=== PATIENT | female | born 1985 | race Caucasian/White ===

== ENCOUNTER 2018-04-15 12:26 | Outpatient (CLI) | payer MEDICAID | END 2018-04-15 16:15 | disposition home or self-care (01) | LOC: OBT 12:26 → L-D 12:27 → OBT 16:15 | DX: O62.9 Abnormality of forces of labor, unspecified (principal); O24.419 Gestational diabetes mellitus in pregnancy, unspecified control; Z3A.38 38 weeks gestation of pregnancy | CPT/HCPCS: 76818 ==

== ENCOUNTER 2018-04-22 18:31 | Inpatient (IN) | payer MEDICAID ==
[2018-04-22 20:15] LABS: ADD MAN DIFF? NO
[2018-04-22 20:19] LABS: BASOPHILS % 0.2 % (0.0-2.0); EOSINOPHILS # 0.1 10^3/ul (0.0-0.5); EOSINOPHILS % 0.8 % (0.0-7.0); HEMATOCRIT 35.7 % (37.0-47.0); HEMOGLOBIN 12.5 g/dl (12.0-16.0); LYMPHOCYTES # 2.3 10^3/ul (0.8-2.9); LYMPHOCYTES % 22.9 % (15.0-51.0); MEAN CORPUSCULAR HEMOGLOBIN 30.5 pg (29.0-33.0); MEAN CORPUSCULAR VOLUME 87.1 fl (82.0-101.0); MEAN PLATELET VOLUME 10.1 fl (7.4-10.4); MONOCYTE # 0.7 10^3/ul (0.3-0.9); MONOCYTES % 7.3 % (0.0-11.0); NEUTROPHIL # 6.8 10^3/ul (1.6-7.5); NEUTROPHILS % 68.4 % (39.0-77.0); PLATELET COUNT 205 10^3/UL (140-415); RED CELL DISTRIBUTION WIDTH 13.5 % (11.5-14.5)
[2018-04-22] MEDS: LACTATED RINGER'S 1,000 ML IV ×2 (20:22→23:32)
[2018-04-22] MEDS ORDERED: METHYLERGONOVINE 0.2 MG INJ IM ×2 (20:30→22:30)
[2018-04-22] MEDS ORDERED: LIDOCAINE 1% (MPF) 30 ML INJ INJ (20:30)
[2018-04-22] MEDS ORDERED: BUTORPHANOL 2 MG INJ IV ×2 (20:30→22:30)
[2018-04-22] MEDS ORDERED: CARBOPROST 250 MCG INJ IM ×2 (20:30→22:30)
[2018-04-22] MEDS ORDERED: OXYTOCIN 30 UNITS/LR 500 ML IV ×5 (20:30→22:30)
[2018-04-22] MEDS ORDERED: MISOPROSTOL 200 MCG TAB PR ×2 (20:30→22:30)
[2018-04-22 20:38] LABS: GLUCOSE 83 mg/dl (70-220)
[2018-04-22 20:38] LABS: PROTIME 12.2 Sec (11.9-14.9)
[2018-04-22 20:39] LABS: PARTIAL THROMBOPLASTIN TIME 25.9 Sec (25.0-35.0)
[2018-04-22 21:10] LABS: HEPATITIS B SURFACE ANTIGEN NEGATIVE (NEGATIVE)
[2018-04-22] MEDS: DINOPROSTONE 10 MG VAG SUPP VAG (23:31)
[2018-04-23] MEDS: LACTATED RINGER'S 1,000 ML IV (03:40)
[2018-04-23] MEDS: LEVOTHYROXINE 50 MCG TAB PO (06:12)
[2018-04-23] MEDS: DEXTROSE 5%-LR 1,000 ML IV (08:37)
[2018-04-23] MEDS: OXYTOCIN 30 UNITS/LR 500 ML IV ×2 (12:39→16:28)
[2018-04-23 15:58] LABS: RAPID PLASMA REAGIN NONREACTIVE (NR)
[2018-04-23] MEDS: LIDOCAINE 1% (MPF) 30 ML INJ INJ (16:15)
[2018-04-23] MEDS ORDERED: METHYLERGONOVINE 0.2 MG INJ IM (18:00)
[2018-04-23] MEDS ORDERED: MISOPROSTOL 200 MCG TAB PR (18:00)
[2018-04-23] MEDS ORDERED: OXYCODONE/ASPIRIN (4.88/325) TAB PO ×2 (18:00)
[2018-04-23] MEDS ORDERED: ZOLPIDEM 5 MG TAB PO (18:00)
[2018-04-23] MEDS ORDERED: CARBOPROST 250 MCG INJ IM (18:00)
[2018-04-23] MEDS ORDERED: OXYTOCIN 30 UNITS/LR 500 ML IV (18:00)
[2018-04-23] MEDS: LANOLIN 7 GM TUBE TOP (18:29)
[2018-04-23] MEDS: WITCH HAZEL/GLYCERIN PAD PR (18:29)
[2018-04-23] MEDS: IBUPROFEN 600 MG TAB PO (18:30)
[2018-04-23] MEDS: BENZOCAINE 20% 56 ML SPRAY TOP (18:30)
[2018-04-23] MEDS: SENNA/DOCUSATE NA (8.6MG/50MG) TAB PO (21:08)
[2018-04-24] MEDS: IBUPROFEN 600 MG TAB PO ×5 (00:19→23:25)
[2018-04-24 08:59] LABS: ADD MAN DIFF? NO
[2018-04-24 09:05] LABS: BASOPHILS % 0.2 % (0.0-2.0); EOSINOPHILS # 0.1 10^3/ul (0.0-0.5); EOSINOPHILS % 0.5 % (0.0-7.0); HEMATOCRIT 38.2 % (37.0-47.0); HEMOGLOBIN 13.6 g/dl (12.0-16.0); LYMPHOCYTES # 2.3 10^3/ul (0.8-2.9); LYMPHOCYTES % 18.9 % (15.0-51.0); MEAN CORPUSCULAR HEMOGLOBIN 30.8 pg (29.0-33.0); MEAN CORPUSCULAR HGB CONC 35.6 g/dl (32.0-37.0); MEAN CORPUSCULAR VOLUME 86.6 fl (82.0-101.0); MEAN PLATELET VOLUME 10.3 fl (7.4-10.4); MONOCYTES % 8.2 % (0.0-11.0); NEUTROPHIL # 8.7 10^3/ul (1.6-7.5); NEUTROPHILS % 71.6 % (39.0-77.0); PLATELET COUNT 197 10^3/UL (140-415); RED BLOOD COUNT 4.41 10^6/ul (4.20-5.40); RED CELL DISTRIBUTION WIDTH 13.3 % (11.5-14.5)
[2018-04-24 09:05] LABS: WHITE BLOOD COUNT 12.1 10^3/ul (4.8-10.8)
[2018-04-24] MEDS: SENNA/DOCUSATE NA (8.6MG/50MG) TAB PO ×2 (09:08→21:02)
[2018-04-24] MEDS: WITCH HAZEL/GLYCERIN PAD PR (18:08)
[2018-04-24] MEDS: BENZOCAINE 20% 56 ML SPRAY TOP (18:08)
[2018-04-25] MEDS: IBUPROFEN 600 MG TAB PO ×3 (05:36→18:06)
[2018-04-25] MEDS: SENNA/DOCUSATE NA (8.6MG/50MG) TAB PO (08:44)
[2018-04-25] MEDS: DIPHTH/TET/ACEL PERTUSS (ADULT) 0.5 ML VIAL IM* (12:08)
== END 2018-04-25 19:15 | disposition home or self-care (01) | DRG 775 ==
LOC: L-D 18:31 → PP1 04-23 17:14
PROVIDERS: Obstetrics & Gynecology
PROC: 10E0XZZ Delivery of Products of Conception, External Approach (ICD-10-PCS; principal; 2018-04-23)
PROC: 0HQ9XZZ Repair Perineum Skin, External Approach (ICD-10-PCS; 2018-04-23)
PROC: 3E0234Z Introduction of Serum, Toxoid and Vaccine into Muscle, Percutaneous Approach (ICD-10-PCS; 2018-04-25)
DX: O24.429 Gestational diabetes mellitus in childbirth, unspecified control (principal); O99.284 Endocrine, nutritional and metabolic diseases complicating childbirth; E03.9 Hypothyroidism, unspecified; O70.9 Perineal laceration during delivery, unspecified; Z3A.39 39 weeks gestation of pregnancy; Z37.0 Single live birth; Z23 Encounter for immunization
CPT/HCPCS: 76815; 82947; 82962; 85025; 85610; 85730; 86592; 86850; 86900; 86901; 87340; 90715; 99464

== ENCOUNTER 2018-06-12 08:48 | Emergency (ER) | payer MEDICAID ==
[2018-06-12 09:29] LABS: ADD MAN DIFF? NO
[2018-06-12 09:32] LABS: BASOPHILS % 0.1 % (0.0-2.0); EOSINOPHILS # 0.1 10^3/ul (0.0-0.5); EOSINOPHILS % 1.3 % (0.0-7.0); HEMATOCRIT 37.8 % (37.0-47.0); HEMOGLOBIN 13.3 g/dl (12.0-16.0); IMMATURE GRANS #M 0.02 10^3/ul; IMMATURE GRANS % (M) 0.2 %; LYMPHOCYTES # 3.7 10^3/ul (0.8-2.9); LYMPHOCYTES % 42.9 % (15.0-51.0); MEAN CORPUSCULAR HEMOGLOBIN 29.4 pg (29.0-33.0); MEAN CORPUSCULAR HGB CONC 35.2 g/dl (32.0-37.0); MEAN CORPUSCULAR VOLUME 83.4 fl (82.0-101.0); MEAN PLATELET VOLUME 9.7 fl (7.4-10.4); MONOCYTE # 0.7 10^3/ul (0.3-0.9); MONOCYTES % 8.4 % (0.0-11.0); NEUTROPHILS % 47.1 % (39.0-77.0); PLATELET COUNT 217 10^3/UL (140-415); RED BLOOD COUNT 4.53 10^6/ul (4.20-5.40); RED CELL DISTRIBUTION WIDTH 11.9 % (11.5-14.5)
[2018-06-12 09:32] LABS: WHITE BLOOD COUNT 8.5 10^3/ul (4.8-10.8)
[2018-06-12 09:51] LABS: ADD UMIC YES; UR ASCORBIC ACID NEGATIVE (NEGATIVE); UR BACTERIA FEW /HPF (NONE SEEN); UR BILIRUBIN (Dip) NEGATIVE (NEGATIVE); UR BLOOD (Dip) 3+ mg/dL (NEGATIVE); UR CLARITY CLEAR (CLEAR); UR COLOR YELLOW (YELLOW); UR GLUCOSE (Dip) NEGATIVE (NEGATIVE); UR KETONES (Dip) NEGATIVE (NEGATIVE); UR LEUKOCYTE ESTERASE (Dip) TRACE Leu/ul (NEGATIVE); UR MUCUS FEW /HPF (NONE SEEN); UR NITRITE (Dip) NEGATIVE (NEGATIVE); UR NONSQUAMOUS EPITHELIAL CELL 1 /HPF (NONE SEEN); UR RBC > 182 /HPF (0-5); UR SPECIFIC GRAVITY (Dip) 1.023 (1.003-1.030); UR TOTAL PROTEIN (Dip) NEGATIVE (NEGATIVE); UR TRANSITIONAL EPI CELL FEW /HPF (NONE SEEN); UR UROBILINOGEN (Dip) NEGATIVE (NEGATIVE); UR WBC 13 /HPF (0-5)
[2018-06-12 09:53] LABS: ALANINE AMINOTRANSFERASE 47 IU/L (13-69); ALBUMIN 4.5 g/dl (3.3-4.9); ALBUMIN/GLOBULIN RATIO 1.45; ALKALINE PHOSPHATASE 94 IU/L (42-121); ANION GAP 14 (8-16); ASPARTATE AMINO TRANSFERASE 24 IU/L (15-46); BILIRUBIN,INDIRECT 1.3 mg/dl (0-1.1); BILIRUBIN,TOTAL 1.3 mg/dl (0.2-1.3); BLOOD UREA NITROGEN 15 mg/dl (7-20); CALCIUM 9.1 mg/dl (8.4-10.2); CARBON DIOXIDE 24 mmol/L (21-31); CHLORIDE 109 mmol/L (97-110); CREATININE 0.58 mg/dl (0.44-1.00); GLUCOSE 91 mg/dl (70-220); POTASSIUM 3.9 mmol/L (3.5-5.1); SODIUM 143 mmol/L (135-144); TOTAL PROTEIN 7.6 g/dl (6.1-8.1)
[2018-06-12 10:08] LABS: FREE THYROXINE INDEX (Calc) 6.69 ug/ml (0.65-3.89); T3 UPTAKE 43.7 % (23.5-40.5); T4 (THYROXINE) 15.3 ug/dl (5.5-11.0)
[2018-06-12 10:42] LABS: THYROID STIMULATING HORMONE < 0.015 MIU/L (0.465-4.680)
== END 2018-06-12 11:06 | disposition home or self-care (01) ==
LOC: FTE 08:48
DX: R42 Dizziness and giddiness (principal); E03.9 Hypothyroidism, unspecified
CPT/HCPCS: 36415; 80053; 81001; 84436; 84443; 84479; 85025; 99283